=== PATIENT | female | born 1970 | race Caucasian/White ===

== ENCOUNTER 2020-01-14 12:18 | Outpatient (CLI) | payer BC ==
--- NOTE | 2020-01-14 13:39 | RAD ---
EXAM: CERVICAL SPINE SEVEN VIEWS INCLUDING FLEXION AND EXTENSION LATERAL VIEWS AND OBLIQUE VIEWS: 01/14/20 HISTORY: Unspecified inflammatory spondylopathy. The tip of the odontoid and upper C1 are partially obscured on the AP open mouth view. C7 and C7-T1 a re partially obscured on the lateral views. Generalized facet arthrosis changes are noted. No evidence for abnormal anterior or retrolisthesis. M inimal narrowing of the right and left C4-5 foramina. No evidence for acute fracture or dislocation. No bony erosive or destructive changes. No plain x-ray evidence for significant acute inflammatory ar thritis. IMPRESSION: Multilevel facet arthrosis changes. No evidence for other significant acute process. POS: OFF
== END 2020-01-14 12:19 | disposition home or self-care (01) ==
LOC: BICRAD 12:18
PROVIDERS: ATTEND Internal Medicine Rheumatology
DX: M46.92 Unspecified inflammatory spondylopathy, cervical region (principal); M47.812 Spondylosis without myelopathy or radiculopathy, cervical region
CPT/HCPCS: 72052